=== PATIENT | female | born 1960 | race Caucasian/White ===

== ENCOUNTER → 2016-08-21 | Outpatient (RCR) | payer BC ==
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
[~2016-08-21] MED LIST: AMOX1TAB12 PO; AMOX500C5 PO; CLIN-78 PO; DOCU100C8 PO; HYDR-3702 PO; HYDR-3811 PO; NCT21TD TD
== END | disposition home or self-care (01) ==
LOC: PT 05-16 16:06
PROVIDERS: ATTEND Family Medicine
DX: S81.801D Unspecified open wound, right lower leg, subsequent encounter (principal); F17.210 Nicotine dependence, cigarettes, uncomplicated; Z86.19 Personal history of other infectious and parasitic diseases; Z87.828 Personal history of other (healed) physical injury and trauma

== ENCOUNTER 2016-09-08 15:44 | Outpatient (RCR) | payer BC | END 2016-09-14 12:00 | disposition home or self-care (01) | LOC: PT 15:44 | PROVIDERS: ATTEND Family Medicine | DX: S81.801D Unspecified open wound, right lower leg, subsequent encounter (principal); F17.210 Nicotine dependence, cigarettes, uncomplicated; Z86.19 Personal history of other infectious and parasitic diseases; Z87.828 Personal history of other (healed) physical injury and trauma ==